=== PATIENT | male | born 1980 | race Caucasian/White ===

== ENCOUNTER 2016-12-29 06:30 | Day surgery (SDC) | payer OTHER ==
[~2016-12-29] VITALS: Ht 182.9 cm; Wt 102.1 kg
[~2016-12-29 06:30] MED LIST: LISINOPRIL30 MG PO; VENTOLIN HFA18 GM INH
[2016-12-29] MEDS ORDERED: QVAR8.7 G1 INH (07:03)
--- NOTE | 2016-12-29 10:19 | EKG ---
[facility] [address] [facility] [place] [address] Signed Sinus rhythm with occasional premature ventricular complexes Otherwise normal ECG No previous ECGs available Confirmed by RDAHA ESCALANTE MD ([id number]) on 12/29/2016 10:19:03 AM Electronically Signed By: RADHA ESCALANTE MD 12/29/16 1019 PATIENT NAME: ERNESTO MITTAL SHAINA Electrocardiogram DATE OF : 78 PHYSICIAN: RADHA ESCALANTE MD REPORT #: [id number] REPORT IS CONFIDENTIAL AND NOT TO BE RELEASED WITHOUT AUTHORIZATION
--- NOTE | 2016-12-29 10:40 | NUR ---
12/29/16 1039 Michelle Stone 1035 PATIENT ARRIVES TO PACU, REACTIVE, BUT DOSE NOT FOLLOW COMMANDS. RESP EVEN AND UNLABORED, MASK AT 10 LITERS. 1038 OXYGEN DECREASED TO 6 LITERS.
--- NOTE | 2016-12-29 11:00 | NUR ---
PT IS BACK TO DS FROM PACU. PT IS C/O PAIN, REPORTS HE WOULD LIKE TO BE A "0." PT GIVEN ICE WATER AND CRACKERS, PT IS C/O CAFFIENE HEADACHE, PT OFFERED COFFEE HE STATES "IT HAS TO BE STRONGER THAN THAT" PT INFORMED WE DON'T HAVE ANYTHING STRONGER THAN THAT. PT IS C/O BEING THIRSTY, BUT REFUSES TO DRINK WATER.
[2016-12-29] MEDS ORDERED: PERCOCET 10-321 EACH PO (11:28)
--- NOTE | 2016-12-29 11:53 | NUR ---
LE 1115: PT UP TO BATHROOM, WITHOUT ASSISTANCE. ABLE TO EMPTY BLADDER.
--- NOTE | 2016-12-29 11:53 | NUR ---
PT REPORTS STILL HAVING PAIN. WANTS TO GET OUT OF HERE. PT WOULD LIKE TO TALK TO DR TO HAVE WEIGHT RESTRICTION LIFTED, INSTRUCTED TO CALL HIS OFFICE AND TALK TO HIM.
--- NOTE | 2016-12-29 14:58 | NUR ---
PT RESTING IN BED WITH ANTONIETTA BY HIS SIDE. WE BEGAN TO TALK, I COULD TELL THAT HE'S UPSET WITH WHAT WAS TAKING PLACE TODAY. ENCOURAGED THEM BOTH TO GET MUCH INFO POSSIBLE. WILL COME IN TO VISIT WITH THEM. PT ASKED FOR PRAYER, RELEASED SOME EMOTION AND THANKED ME FOR COMING BY. WILL FOLLOW NEEDED
--- NOTE | 2017-01-05 12:08 | OR ---
[facility] [address] [place], [place] [address] Signed DATE OF SERVICE: 12/29/2016 PREOPERATIVE DIAGNOSIS: Posterior cervical subcutaneous cyst (4 cm). POSTOPERATIVE DIAGNOSIS: Posterior cervical subcutaneous cyst (4 cm). PROCEDURES: Excision of posterior midline cervical subcutaneous cyst/sebaceous cyst. Cultures. ESTIMATED BLOOD LOSS: Minimal. INDICATIONS: Sánchez is a 36-year-old gentleman who works at our local [employer]. It is very had heavy and dirty work. He has had trouble with a recurring cyst on the posterior midline of his neck. He said he can usually squeeze it or have his girlfriend squeeze it and usually is fine. This time, it is become larger and larger, its deep and causing a lot of pain. It is at least 4 cm in diameter with the surrounding indurated soft tissue. It is 5 cm or more in diameter. He said it is starting to affect his ability to extend his head posteriorly. He decided to go to his primary care provider to have it evaluated. He was asked to see me as a general surgeon with respect to the above. He said it has not been infected recently. It remains painful. I met with Kwesi and his in the office. He does have a large cyst in the posterior midline of his neck. It revealed a 4 cm if not larger. In the office, we did not see any local signs or symptoms of infection. We could see a punctate area in the center, but we were able to express any fluid or sebum at that time. I explain e d to Kwesi and his , this far too large to do under local anesthetic in the office. These are chronically inflamed, indurated, and very scarred into the surrounding tissues. They always extend from the skin down to the muscle and because of the chronically inflamed, they always bleed significantly and require cautery. I explained to Kwesi and his because of these factors we needed to do this over in operating room under general anesthesia. I explained to them we would use a transverse incision to remove the lesion, and we would close the lesion at the end, and if it became infected postoperatively would have to simply cut the stitches and open it up and let it heal secondarily. I explained to Kwesi and his the nature of a cyst along with the I D of the cyst wall, needing to be completely excised, they understand there is risk to the surgery including but not limited to bleeding, infection, scarring, change in contour of the skin as well as recurrent cyst in the same or other locations. They had expressed understanding and wished to proceed. PROCEDURE NOTE: Electronically Signed By: DANILO BOBBY MD 01/05/17 1208 PATIENT NAME: SÁNCHEZ MITTAL OPERATIVE REPORT DATE OF : 78 PHYSICIAN: DANILO BOBBY MD REPORT #: [id number] REPORT IS CONFIDENTIAL AND NOT TO BE RELEASED WITHOUT AUTHORIZATION [address] [address] Signed I met with Kwesi and his in preop area. Kwesi was pretty nervous and anxious for the surgery. We were able to easily identify the cyst on the back of his neck and marked that appropriately. Kwesi was then taken into our operating room and placed in the prone position with appropriate padding and monitoring with general anesthesia. He was given preoperative antibiotics along with subcutaneous heparin. SCDs were utilized. We then rotated him in to the reverse Trendelenburg position. He had been prepped and draped in the usual sterile f ashion. An elliptical incision was made over the lesion to include the center pore in his neck. This was carried down around the cyst and cyst wall with the help of the cautery. As expected, the tissue was incredibly indurated and fibrosed and scarred. As always, it had several areas of blood significantly that we took a few minutes to control and cauterize. Eventually, we worked our way underneath the cyst over the top of the muscle, and that way, we removed the entire cyst and cyst wall en bloc. We passed the cyst off the field and took a picture for photo documentation. The cyst itself was 4 cm in diameter. Consequently, the surrounding indurated tissue was at fannie s t a centimeter thick totaling at least 5 cm in diameter. After this, the wound was irrigated and suctioned out until clear. We injected local anesthetic into the wound. We did note a little sebum from the cyst itself and that is consistent with a sebaceous cyst. After this, the dermis was reapproximated with interrupted 3-0 Monocryl sutures. The skin edges were reapproximated with running 6-0 fast absorbing plain gut suture. Dry gauze and tape was then applied. Kwesi was then rotated into the supine position on his hospital bed. Weaned from his anesthesia, extubated in the OR, taken to recovery room in stable condition. MD WILLIAN Harris/Isidro /[id number] cc: Shana Bobby MD Electronically Signed By: DANILO BOBBY MD 01/05/17 1208 PATIENT NAME: SÁNCHEZ MITTAL SHAINA OPERATIVE REPORT DATE OF : 78 PHYSICIAN: DANILO BOBBY MD REPORT #: [id number] REPORT IS CONFIDENTIAL AND NOT TO BE RELEASED WITHOUT AUTHORIZATION
== END 2016-12-29 12:00 | disposition home or self-care (01) ==
LOC: DS 06:30
PROVIDERS: Colon & Rectal Surgery
PROC: 0HB4XZZ Excision of Neck Skin, External Approach (ICD-10-PCS; principal; 2016-12-29 08:45)
DX: L98.8 Other specified disorders of the skin and subcutaneous tissue (principal); I10 Essential (primary) hypertension; J45.909 Unspecified asthma, uncomplicated; Z86.11 Personal history of tuberculosis; Z87.891 Personal history of nicotine dependence; Z79.899 Other long term (current) drug therapy
CPT/HCPCS: 00300; 87070; 87075; 87076; 87077; 87185; 87205; 93005; 93010; J0330; J0690; J1644; J2250; J2405; J2704; J3010; J7120